=== PATIENT | female | born 1995 | race Caucasian/White ===

== ENCOUNTER → 2022-01-24 14:56 | Outpatient (BNVA) | payer MEDICAID, SELFPAY | PROVIDERS: Family Provider Pediatrics; Visit Provider Obstetrics & Gynecology | DX: Z12.4 Encounter for screening for malignant neoplasm of cervix (principal); N89.8 Other specified noninflammatory disorders of vagina | CPT/HCPCS: 87491; 87591; 87661; 88175 ==

== ENCOUNTER → 2022-11-06 08:40 | Outpatient (BNVA) | payer BC, MEDICAID, SELFPAY | PROVIDERS: Visit Provider Obstetrics & Gynecology | DX: R10.2 Pelvic and perineal pain (principal) | CPT/HCPCS: 76830 ==

== ENCOUNTER 2023-06-17 10:15 | Emergency (ER) | payer MEDICAID, SELFPAY ==
[2023-06-17 11:01] VITALS: BP 119/74; PULSE 102; RESP 18; TEMP 36.8; O2SAT 100; BMI 24.4
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
== END 2023-06-17 12:33 | disposition home or self-care (01) ==
PROVIDERS: Emergency Provider Family Medicine; PCP Family Medicine
DX: S61.211A Laceration without foreign body of left index finger without damage to nail, initial encounter (principal); W26.0XXA Contact with knife, initial encounter
CPT/HCPCS: 12001; 12002; 99282

== ENCOUNTER 2023-06-18 13:37 | Emergency (ER) | payer MEDICAID, SELFPAY | END 2023-06-18 14:32 | disposition left against medical advice (07) | PROVIDERS: Emergency Provider Family Medicine; PCP Family Medicine | DX: Z53.21 Procedure and treatment not carried out due to patient leaving prior to being seen by health care provider (principal) | CPT/HCPCS: 99283 ==

== ENCOUNTER 2023-06-26 06:00 | Outpatient (CLI) | payer MEDICAID, SELFPAY | END 2023-06-26 06:01 | LOC: SOT 07-02 12:54 | PROVIDERS: PCP Family Medicine; Visit Provider Physician Assistant | DX: Z46.89 Encounter for fitting and adjustment of other specified devices (principal); M20.011 Mallet finger of right finger(s) | CPT/HCPCS: 97760; L3925 ==

== ENCOUNTER → 2023-06-26 08:06 | Outpatient (BNVA) | payer MEDICAID, SELFPAY | PROVIDERS: PCP Family Medicine; Referring Provider Family Medicine; Visit Provider Student in an Organized Health Care Education/Training Program | DX: M20.011 Mallet finger of right finger(s); S62.662A Nondisplaced fracture of distal phalanx of right middle finger, initial encounter for closed fracture; W21.09XA Struck by other hit or thrown ball, initial encounter | CPT/HCPCS: 73130 ==

== ENCOUNTER 2023-06-28 10:13 | Day surgery (SDC) | payer MEDICAID, SELFPAY ==
[2023-06-28] VITALS (8 sets, daily range): BP systolic 97–116; BP diastolic 47–93; PULSE 82–114; RESP 16–18; TEMP 36.1–36.7; O2SAT 93–100; BMI 25.1
--- NOTE | 2023-06-28 | XR_ITS ---
WS: [id number] C-ARM RADIOGRAPHS RIGHT THIRD FINGER; 2 IMAGES HISTORY: OR PICS COMPARISON: 06/26/2023 Intraoperative imaging during pinning and stabilization of an avulsion fracture through the distal th ird phalanx. IMPRESSION: Intraoperative imaging during ORIF.
[2023-06-28] MEDS: scopolamine 1.5 Patch 1 PATCH TRANSDERMA (10:46)
[2023-06-28] MEDS: ketorolac 30 mg/mL INJ IVP (10:47)
[2023-06-28] MEDS: acetaminophen 1,000 MG/100 ML PIGGYBACK 400 MG IV (10:47)
[2023-06-28 11:15] LABS: OR HCG Qualitative Urine Negative (Negative)
[2023-06-28] MEDS: sodium chloride 0.9% 1,000 ML 30 ML IV (11:39)
--- NOTE | 2023-06-28 12:50 | W.PM.OPSUD ---
Surgery/Procedure H&P Update DATE OF PROCEDURE: June 28, 2023 DATE H&P PERFORMED: 06/26/23 H&P UPDATE INFORMATION: I have reviewed H&P completed within last 30 days, I have examined patient prior to procedure and No changes to prior documentation PREOP DIAGNOSIS: Right middle finger bony mallet, left index finger radial digital nerve lac PRIMARY INDICATION FOR PROCEDURE: Right middle finger bony mallet, left index finger radial digital nerve laceration PLANNED PROCEDURE: Operation Date: 06/28/23 12:20 Proposed Procedures p ORIF Finger/RIGHT MIDDLE FINGER CLOSED VERSUS OPEN INTERNAL FIXATION(Right) - DO mp Hartmann Laceration Repair Upper Extremity/LEFT INDEX FINGER LACERATION EXPLORATION WITH POSSIBLE DIGITAL NERVE REPAIR(Left) - Dada Emery DO
--- NOTE | 2023-06-28 12:50 | ANES.PREANE2 ---
Pre-Anesthetic Assessment Height/Weight: Height 1.8 m Weight 81.647 kg O2 Del Method Room Air 06/28/23 10:39 Operation Date: 06/28/23 12:20 Proposed Procedures p ORIF Finger/RIGHT MIDDLE FINGER CLOSED VERSUS OPEN INTERNAL FIXATION(Right) - Dada Emery DO s Laceration Repair Upper Extremity/LEFT INDEX FINGER LACERATION EXPLORATION WITH POSSIBLE DIGITAL NERVE REPAIR(Left) - Dada Emery DO Was Beta Nelda taken within 24 hours: N/A Was Clonidine taken within 24 hours: N/A Last intake: Intake Last Liquid Date 06/27/23 Last Liquid Time 21:00 Last Solid Date 06/27/23 Last Solid Time 21:00 Social No tobacco Exam alert and oriented x 3 Airway Submandibular: within normal limits Cervical ROM: within normal limits Mallampati: Class I History/ROS No significant history except as noted and No significant complaints Anesthetic Plan ASA status: 1 Anesthesia: General Risk of > 500 ml blood loss (7ml/kg in children): No Medications/Allergies Home Medications Medication Instructions Recorded Confirmed Last Taken Type hydrocodone 5 mg-acetaminophen 325 1 tab PO Q6H PRN pain 5 days #20 06/26/23 06/27/23 06/27/23 Rx mg tablet tabs right mallet finger splint #1 ea 06/26/23 06/26/23 Unknown Rx ondansetron 4 mg disintegrating 4 mg PO Q8H PRN nausea and 06/28/23 Unknown Rx tablet vomiting 3 days #9 tabs Allergies Allergy/AdvReac Type Severity Reaction Status Date / Time No Known Allergies Allergy Verified 06/27/23 15:06 Current Medications Generic Name Dose Route Start Last Admin Trade Name Freq PRN Reason Stop Dose Admin Sodium Chloride 1,000 mls @ 30 mls/hr 06/28/23 10:45 06/28/23 11:39 Sodium Chloride 0.9% IV 06/29/23 10:44 30 mls/hr .Q24H VALERIE Administration PFSH Anesthesia Surgical History H/O tubal ligation Family History Father Diabetes Hypertension Stroke Mother Diabetes Hypertension Grandfather Diabetes maternal Hypertension maternal Stroke maternal Grandmother Diabetes paternal Hypertension paternal Breast cancer paternal, age onset unknown Denies family history of Colon cancer Ovarian cancer Clotting disorder Hyperlipidemia Anesthesia complication Bleeding disorder Uterine cancer Thyroid disease Social History (Updated 06/26/23 @ 08:18 by Kaylah Hinton LPN) Smoking and tobacco/nicotine status: never used tobacco/nicotine Alcohol intake: current Alcohol intake frequency: holidays/special occasions only Female Reproductive History Date of last menstrual period: 06/04/23 Data Anesthesia Cardiac Studies: No Data to Display
[2023-06-28] MEDS: ceFAZolin 2,000 MG in sodium chloride 0.9% (plus) 50 ML 100 MG IV (14:37)
[2023-06-28] MEDS: ROPivacaine 0.5% SDV 30 mL 150 MG INJECTION (15:59)
[2023-06-28] MEDS: lidocaine 2% INJ 20 mL INJECTION (15:59)
--- NOTE | 2023-06-28 17:16 | W.PM.BPON ---
Date of Procedure: 06/28/2023 Surgeon: Dada Emery DO Stage Director(s): Marian BRAVO Procedure(s) performed: Right middle finger distal phalanx open reduction and internal fixation of bony mallet Left index finger laceration exploration Left index finger radial digital nerve neurolysis Left index finger radial digital nerve repair Findings of the procedure(s): Patient was found to have a right middle finger distal phalanx bony mallet required open reduction internal fixation patient tolerated this procedure without issues or complications. Patient subsequently then underwent exploration of left index finger which was found to have a partial laceration of the radial digital nerve which subsequently neurolysis was performed to clear of all scar tissue and a nerve conduit tube was used for digital nerve repair. Patient tolerated procedure without complications Estimated blood loss: 5 mL Specimen(s) removed: None Post-operative diagnosis: Left index finger radial digital nerve laceration, right middle finger distal phalanx bony mallet
--- NOTE | 2023-06-28 17:20 | P.OP_ITS ---
Operative Report Date of procedure: June 28, 2023 Pre-op diagnosis: Right middle finger bony mallet Left index finger digital nerve laceration Post-op diagnosis: Same Post-op findings: See operative report narrative Procedure done: Right middle finger distal phalanx open reduction and internal fixation of bony mallet Left index finger laceration exploration Left index finger radial digital nerve neurolysis Left index finger radial digital nerve repair Implants: Heriberto neurotube 2.5 mm x 2.5 cm Surgeon: Dada Emery DO Supervisor Spring Up: LAWRENCE Saul Anesthesia: General Estimated blood loss: 5mL 40 minutes finger turnicot right middle finger 57 minutes left upper extremity tourniquet to 50 mmHg IV fluids: 1600 mL Complications: None Findings: See operative report narrative Condition: stable Disposition: same day Brief History: Patient been seen evaluate in the outpatient setting patient was initially found to have a right middle finger large bony mallet finger with significant large bony fragment with displacement given young age talked about treatment options she elects proceed with surgical intervention. Just the day prior she had had a laceration to the radial aspect of her left index finger and has paresthesias and positive Tinel's concerning findings for radial digital nerve laceration she has full range of motion of this digit we talked about options at this point in time given this is within 2 weeks we talked about treatment options and through shared decision-making she elects proceed with surgical intervention for a left index finger laceration exploration possible digital nerve repair understanding the exams procedure risk benefits complication alternatives surgery she looks proceed with surgical intervention for both. All questions answered. Procedure: Patient seen eval in the preoperative holding area. Consent was reviewed and signed with patient correct extremity/digits was then subsequently marked. Patient was then seen eval by anesthesia once cleared for surgery patient was then taken back to the operative suite kept on the [facility] and armboard was applied to the right upper extremity with plan to proceed with a right middle finger bony mallet first. Patient underwent anesthesia per the anesthesia department once properly anesthetized, The right upper extremity was then prepped and draped in send orthopedic fashion. Final timeout performed. Patient received appropriate preoperative antibiotics. I started with attempting for closed reduction percutaneous pinning of the bony mallet finger. I utilized mini C arm and multiple attempts were made this large bony fragment was unable to be appropriately reduced with a dorsal blocking pin and a central retrograde DIP pin as result I proceeded with open reduction inter nal fixation with K wires. I started by placing a sterile finger turnicot. Made a standard H incision to the DIP joint identified the fracture and large bony mallet. This was then subsequently retracted and all fracture hematoma was thoroughly irrigated and debrided with a dental pick and curette once this was prepped I then subsequently utilizing a dental pick maintain my reduction and subsequently placed a dorsal blocking pin and then a central pin in retrograde fashion this demonstrated stable fixation and a concentrically reduced PIP joint with appropriate bony apposition. No satisfied with this and subsequently the finger turnicot was removed hemostasis was satisfactory bipolar electrocautery subsequently closed these with interrupted nylon stitches and then subsequently bent cut and capped the distal ends of the K wires this right middle finger was then appropriately dressed with a bulky dressing and AlumaFoam splint around as a tip protector. Patient tolerated this without any issues and subsequently the drapes were taken down and proceeded with the next part of procedure Next the bed was then rotated 180 degrees and armboard was applied to the left upper extremity once again patient was artery appropriately anesthetized a nonsterile tourniquet was applied to the left upper arm and patient subsequently had the left upper extremity was prepped and draped in orthopedic fashion once again reviewed the timeout we proceeded with left index finger laceration exploration and digital nerve repair. Esmarch tourniquet was used to exsanguinate the left upper extremity tourniquet inflated to 250 mmHg. I then subsequently the previous laceration over the P1 of the left index finger on the radial side was extended both distally and proximally in standard [place]ina fashion with care to approach each flexor crease at an angle. I then subsequently utilized Antonietar dissection scissors to spread longitudinally and then subsequently identified to the digital radial bundle. Patient was found to have a small dorsal cutaneous branch as well as the main digital nerve branch. Dissecting these were completely continuity was noted however I did notice on the main radial digital nerve was found to have a partial laceration starting from palmar to dorsal this went into roughly 20% of the nerve I subsequently utilized microdissection scissors at this point in time with loupe magnification and identified at this partial nerve laceration. Given this laceration was not complete and there was no significant extensive zone of injuries I then cleaned up any scar tissue and adhesions around the digital nerve performing a standard digital nerve neurolysis of the radial digital nerve bundle on the index finger and then subsequently my decision was then made in order to help encourage appropriate nerve healing and no neuroma formation I subsequently wrapped the nerve in a standard Heriberto neuro tube 2.5 mm x 2.5 cm. I then split this longitudinally after it was appropriately soaked wrapped of the nerve and then utilizing 7-0 PDS suture subsequently loosely secured this nerve both proximally and distally to prevent sliding and this was wrapped directly over the nerve laceration as well as then secured the nerve tube with simple interrupted stitches throughout the nerve tube conduit. This conduit was in stable position I took the finger through range of motion and the conduit stayed in appropriate position there was no tethering or entrapment of the nerve at this point. Once again I confirmed that there is no injury to the ulnar digital bundle and at this point time this completed my repair there is no violation of the flexor tendons. This point in time tourniquet deflated hemostasis satisfactory thoroughly irrigation performed and then I subsequently closed the incision with interrupted nylon suture and then subsequently bulky soft dressing with Xeroform 4 x 4's fluffs Curlex and a dorsal blocking splint was then applied to protect the repair. Patient was then awakened from anesthesia and taken back in stable condition. Disposition: Patient taken back in stable condition receive appropriate discharge structure as well as pain medication postoperatively. Will follow-up in the orthopedic office in 2 weeks. Patient may contact the office for any questions or concerns. Patient should be nonweightbearing to the bilateral hands maintain splint until follow-up with OT hand therapy.
[2023-06-28] MEDS: HYDROmorphone 1 mg/mL INJ 1 mL 0.5 MG IVP (17:40)
[2023-06-28] MEDS: HYDROcodone-acetaminophen 5-325 mg Tablet 1 TAB PO (18:11)
[2023-06-28] MEDS: morphine 4 mg/mL SDV 1 mL IVP (18:11)
--- NOTE | 2023-06-29 06:42 | ANE.PACU2 ---
Inpatient post-anesthesia follow up: Airway intact: Yes Vital signs: Temperature 97 F Pulse Rate 114 Respiratory Rate 16 Blood Pressure 102/63 Pulse Oximetry 95 Oxygen Delivery Me thod Room Air Oxygen Flow Rate Fraction of Inspir ed Oxygen Hydration adequate: Yes Nausea and vomiting: No Pain level: 3 Mental status: Baseline
== END 2023-06-28 19:15 | disposition home or self-care (01) ==
PROVIDERS: PCP Family Medicine; Visit Provider Student in an Organized Health Care Education/Training Program
PROC: (CPT 26433; principal; 2023-06-28 12:20)
PROC: (CPT 26433; 2023-06-28 12:20)
DX: M20.011 Mallet finger of right finger(s) (principal); S62.601A Fracture of unspecified phalanx of left index finger, initial encounter for closed fracture; S61.211A Laceration without foreign body of left index finger without damage to nail, initial encounter; X58.XXXA Exposure to other specified factors, initial encounter
CPT/HCPCS: 26433; 64702; 73140; 76000; 81025; 84703; C1713; C1734; J0131; J0690; J1170; J1885; J2270; J2704; J2795; J3010; J7030

== ENCOUNTER 2023-07-13 06:00 | Outpatient (CLI) | payer MEDICAID, SELFPAY | END 2023-07-13 23:59 | disposition home or self-care (01) | LOC: SOT 07-16 09:17 | PROVIDERS: Visit Provider Student in an Organized Health Care Education/Training Program | DX: Z46.89 Encounter for fitting and adjustment of other specified devices (principal); M20.011 Mallet finger of right finger(s) | CPT/HCPCS: 97760; L3919; L3935 ==

== ENCOUNTER → 2023-07-13 10:48 | Outpatient (BNVA) | payer MEDICAID, SELFPAY | PROVIDERS: PCP Family Medicine; Visit Provider Physician Assistant | DX: M20.011 Mallet finger of right finger(s); S64.491D Injury of digital nerve of left index finger, subsequent encounter; X58.XXXD Exposure to other specified factors, subsequent encounter | CPT/HCPCS: 73130 ==

== ENCOUNTER 2023-08-09 06:00 | Outpatient (CLI) | payer MEDICAID, SELFPAY | END 2023-08-09 23:59 | disposition home or self-care (01) | LOC: SOT 08-13 07:52 | PROVIDERS: PCP Family Medicine; Visit Provider Physician Assistant | DX: Z46.89 Encounter for fitting and adjustment of other specified devices (principal); S62.632D Displaced fracture of distal phalanx of right middle finger, subsequent encounter for fracture with routine healing; W20.8XXD Other cause of strike by thrown, projected or falling object, subsequent encounter | CPT/HCPCS: 97760; L3925 ==

== ENCOUNTER → 2023-08-09 13:32 | Outpatient (BNVA) | payer MEDICAID, SELFPAY | PROVIDERS: PCP Family Medicine; Visit Provider Physician Assistant | DX: M20.011 Mallet finger of right finger(s) (principal); S64.40XA Injury of digital nerve of unspecified finger, initial encounter; X58.XXXA Exposure to other specified factors, initial encounter | CPT/HCPCS: 73130 ==

== ENCOUNTER → 2023-11-29 11:02 | Outpatient (BNVA) | payer MEDICAID, SELFPAY | PROVIDERS: PCP Family Medicine; Visit Provider Physician Assistant | DX: M20.011 Mallet finger of right finger(s) (principal); S64.492A Injury of digital nerve of right middle finger, initial encounter; X58.XXXA Exposure to other specified factors, initial encounter | CPT/HCPCS: 73130; 99213 ==

== ENCOUNTER → 2024-01-10 14:20 | Outpatient (BNVA) | payer BC, MEDICAID, SELFPAY | PROVIDERS: PCP Family Medicine; Visit Provider Nurse Practitioner Family | DX: N39.0 Urinary tract infection, site not specified (principal); R30.0 Dysuria | CPT/HCPCS: 81000; 87491; 87591 ==